=== PATIENT | male | born 1955 | race Caucasian/White ===

== ENCOUNTER 2017-07-30 07:25 | Day surgery (SDC) | payer OTHER ==
[~2017-07-30 07:25] MED LIST: ACETAMINOPHEN 1,000 MG/100 ML BTL IV ONE
[2017-07-30] MEDS ORDERED: FENTANYL PF 100MCG/2ML VIAL IV ONE (07:26)
[2017-07-30] MEDS ORDERED: HYDROCODONE/APAP 5/325MG TABLET PO ONE (07:26)
[2017-07-30] MEDS ORDERED: BUPIVACAINE 0.25% W/EPI MPF 30ML VIAL IVP ONE (07:26)
[2017-07-30] MEDS ORDERED: KETOROLAC 30 MG/ML VIAL IVP ONE (07:26)
[2017-07-30] MEDS ORDERED: ONDANSETRON HCL IV 4 MG/2 ML VIAL IVP ONE (07:26)
[2017-07-30] MEDS ORDERED: PROPOFOL 10 MG/ML VIAL IV ONE (07:26)
[2017-07-30] MEDS ORDERED: SEVOFLURANE 250 ML INH ONE (07:26)
[2017-07-30] MEDS ORDERED: EPHEDRINE SULFATE 50 MG/ML ML IV ONE (07:26)
[2017-07-30] MEDS ORDERED: LIDOCAINE 2% MDV (20MG/ML) 20ML VIAL IV ONE (07:26)
[2017-07-30] MEDS ORDERED: MIDAZOLAM HCL 2MG/2ML VIAL IV ONE (07:26)
--- NOTE | 2017-07-30 13:00 | Operative Note ---
DATE OF SURGERY: 07/30/2017 Surgeon: Eloy Truong DO PREOPERATIVE DIAGNOSES: 1. Back mass. 2. Scalp mass. POSTOPERATIVE DIAGNOSES: 1. Back mass, measured 6.4 cm into the muscle. 2. Scalp mass, measured 3 cm into the subcu. OPERATION: 1. Excision of back mass. 2. Excision of scalp mass. PROCEDURE: The patient is a 62-year-old male who was brought to the operating room and placed in a supine position. General anesthesia was administered per department of anesthesia. The patient rotated into left lateral position. He was positioned correctly on a beanbag, padded in all spots. His back and scalp were prepped and draped in the usual fashion. Adequate timeout was performed. The area of the back was anesthetized with a total of 8 mL of 0.25% Sensorcaine with epinephrine. A 5 cm incision was made. This was carried down through the subcutaneous tissues to the capsule of a large lipoma. This was dissected free from surrounding tissue. It did go down to the level of the fascia overlying the trapezius muscle. This was then fully excised and passed off the field. This did measure 6 x 4 cm. Due to the size of the cavity, a 1-inch Juan drain was placed and brought out through a separate stab incision. The wound was irrigated and closed with 3-0 and 4-0 Vicryl. Drain was sutured in with 3-0 nylon. Attention now turned to the scalp where the patient had a very large mass which appeared to be a sebaceous cyst. This area was anesthetized with a total of 5 mL of 0.25% Sensorcaine with epinephrine. An elliptical incision was made. This was carried down to the capsule of a sebaceous cyst. This was dissected free from surrounding tissue with iris scissors. This was then passed off the field. I did have to excise some skin due to the redundant nature. The wound was then irrigated and closed with 3-0 nylon. This measured 3 cm. He tolerated the procedure well. CALVIN
--- NOTE | 2017-07-30 13:14 | Physician Courtesy Letter ---
DATE: 07/30/[address] Franklin, I saw Mr. Kent in the office on 07/30/2017 in regard to a scalp cyst. He states that this has been present for at least 10 years. In his opinion, this has become larger, occasionally painful. This has never become infected or drained. PAST MEDICAL HISTORY: Negative for any significant illnesses. PAST SURGICAL HISTORY: Right shoulder arthroscopy. MEDICATIONS: None. ALLERGIES: None. SOCIAL HISTORY: He denies any tobacco usage. He does have a social alcohol history. PHYSICAL EXAMINATION: VITAL SIGNS: Height 6 feet 1 inch, weight 270. He is afebrile. Vital signs are stable. HEART: Regular. LUNGS: Clear. ABDOMEN: Soft. SKIN: Examination of the scalp reveals a 4 cm soft tissue mass off to the left on the top of his scalp. This is consistent with a probable sebaceous cyst. PLAN: We will plan on excision. Risks include bleeding, infection, recurrence, wound complications. He understands this fully. This will be scheduled shortly. Thank you for this referral. CALVIN
== END 2017-07-30 10:50 | disposition home or self-care (01) ==
LOC: SUR 07:25 → SC 07:25 → EDSTATUS 08:30 → SC 10:50
PROVIDERS: ATTEND Surgery
DX: D17.1 Benign lipomatous neoplasm of skin and subcutaneous tissue of trunk (principal); L72.11 Pilar cyst
CPT/HCPCS: 11406; 13101; 11423; 00300; J1885; J2405; J3010